=== PATIENT | male | born 1970 | race Hispanic/Latino ===

== ENCOUNTER 2017-07-08 04:12 | Emergency (ER) | payer OTHER ==
[2017-07-08 04:21] VITALS: BP 130/70; PULSE 84; RESP 16; TEMP 98; O2SAT 99
--- NOTE | 2017-07-08 04:29 | ED PDOC ---
HPI: Back Time Seen by Provider: 07/08/17 04:22 Chief Complaint (Nursing): Back Pain Chief Complaint (Provider): low back pain History Per: Patient Additional Complaint(s): 46-year-old male with history of herniated disc to L5-S1 presents with lower back pain exacerbation that started earlier today. Patient denies trauma or injury. He took Motrin 800 mg earlier this AM which did help somewhat. Patient denies bowel or bladder dysfunction. Past Medical History Reviewed: Historical Data, Nursing Documentation, Vital Signs Vital Signs: Last Vital Signs Temp 98.0 F 07/08/17 04:18 Pulse 84 07/08/17 04:18 Resp 16 07/08/17 04:18 BP 130/70 07/08/17 04:18 Pulse Ox 99 07/08/17 04:18 - Medical History PMH: Back Problems - Surgical History Other surgeries: bone graft of hip, age 12 - Family History Family History: States: No Known Family Hx - Living Arrangements Living Arrangements: With Family - Social History Current smoker - smoking cessation education provided: No Alcohol: Social Drugs: Denies - Home Medications Home Medications: Ambulatory Orders Medication Instructions Recorded Cyclobenzaprine [Cyclobenzaprine 10 mg PO TID PRN #20 tab 07/08/17 HCl] Naproxen [Naprosyn] 500 mg PO BID #20 tab 07/08/17 - Allergies Allergies/Adverse Reactions: Allergies Allergy/AdvReac Type Severity Reaction Status Date / Time No Known Allergies Allergy Verified 07/08/17 04:21 Review of Systems ROS Statement: Except As Marked, All Systems Reviewed And Found Negative Constitutional: Negative for: Fever Cardiovascular: Negative for: Chest Pain Respiratory: Negative for: Cough Gastrointestinal: Negative for: Nausea, Vomiting Genitourinary Male: Negative for: Dysuria, Frequency, Incontinence, Hematuria Musculoskeletal: Positive for: Back Pain Neurological: Negative for: Headache Physical Exam - Reviewed Nursing Documentation Reviewed: Yes Vital Signs Reviewed: Yes - Physical Exam Appears: Positive for: Well, Non-toxic, No Acute Distress Skin: Negative for: Rash Eye Exam: Negative for: Normal appearance Cardiovascular/Chest: Positive for: Regular Rate, Rhythm Respiratory: Positive for: Normal Breath Sounds Back: Positive for: Vertebral Tenderness (lumbar) Extremity: Positive for: Normal ROM Neurologic/Psych: Positive for: Alert, Oriented - ECG O2 Sat by Pulse Oximetry: 99 Pulse Ox Interpretation: Normal Medical Decision Making Medical Decision Making: Impression: Low back pain exacerbation Plan: PO naprosyn 500 mg Rx naprosyn and flexeril provided, along with ortho referral. Disposition - Clinical Impression Clinical Impression: Back strain - Patient ED Disposition Is Patient to be Admitted: No Counseled Patient/Family Regarding: Diagnosis, Need For Followup, Rx Given - Disposition Referrals: Ramo Berger III, MD [Staff Provider] - Disposition: Routine/Home Disposition Time: 04:30 Condition: STABLE Additional Instructions: TAKE RX MEDS DIRECTED. AVOID HEAVY LIFTING. FOLLOW UP WITH PRIMARY CARE DOCTOR OR WITH ORTHOPEDIST FOR ANY PERSISTENT SYMPTOMS. Prescriptions: Cyclobenzaprine [Cyclobenzaprine HCl] 10 mg PO TID PRN #20 tab PRN Reason: Muscle Spasm Naproxen [Naprosyn] 500 mg PO BID #20 tab Instructions: Muscle Strain, Low Back Pain (DC), Back Exercises Forms: [facility] ([place])
[2017-07-08] MEDS ORDERED: Naproxen 500 MG TAB PO STA (04:30)
[2017-07-08] MEDS ORDERED: Naproxen 500 MG TAB PO ONE (04:48)
== END 2017-07-08 05:15 | disposition home or self-care (01) ==
LOC: H.ER 04:12
DX: M54.5 Low back pain (principal)

== ENCOUNTER 2017-10-28 00:12 | Emergency (ER) | payer OTHER ==
[2017-10-28 00:20] VITALS: RESP 18
[2017-10-28] MEDS ORDERED: Sodium Chloride 0.9% 1,000 ML IV STA ×3 (00:25→01:40)
[2017-10-28 00:59] LABS: BASO % 0.4 % (0.0-2.0); HEMOGLOBIN 15.1 g/dL (12.0-18.0); LYMPH # 0.6 K/uL (1.0-4.3); MEAN CELL VOLUME 86.9 fl (80.0-94.0); MEAN CORPUSCULAR HEMOGLOBIN 29.6 pg (27.0-31.0); MEAN PLATELET VOLUME 8.1 fl (7.2-11.7); MONO # 0.6 K/uL (0.0-0.8); MONO % 12.6 % (0.0-10.0); NEUT # 3.3 K/uL (1.8-7.0); NRBC % 0.1 % (0.0-0.0); RBC 5.12 Mil/uL (4.40-5.90); RED CELL DISTRIBUTION WIDTH 13.6 % (11.5-14.5); WHITE BLOOD COUNT 4.5 K/uL (4.8-10.8)
[2017-10-28 01:02] LABS: BLOOD UREA NITROGEN 17 mg/dl (9-20); CALCIUM 8.8 mg/dL (8.4-10.2); GFR AFRICAN-AMERICAN > 60; GFR NON-AFRICAN AMERICAN 50
[2017-10-28 01:10] LABS: CK-MB 0.35 ng/mL (0.0-3.38)
--- NOTE | 2017-10-28 01:24 | ED PDOC ---
HPI: General Adult Time Seen by Provider: 10/28/17 00:17 Chief Complaint (Nursing): Flu-like Symptoms History Per: Patient History/Exam Limitations: no limitations Onset/Duration Of Symptoms: Days Have you had recent travel within the past 21 days to any of the following countries: [place], [place], [place] or [place]?: No Additional Complaint(s): Patient with no PMHx presenting with fever, patient states "I think I have heat stroke", states he was doing a vigorous training course and felt tired afterwards with chills and sweats as well as bodyaches. States his temperature was 102 last night. Today he states fever persisted and had general malaise, bodyaches. Denies cough, urinary symptoms, sick contacts, recent travel, chest pain, shortness of breath. Past Medical History Reviewed: Historical Data, Nursing Documentation, Vital Signs Vital Signs: Last Vital Signs Temp 98.9 F 10/28/17 02:14 Pulse 83 10/28/17 02:14 Resp 18 10/28/17 02:14 BP 124/61 10/28/17 02:14 Pulse Ox 95 10/28/17 02:14 - Medical History PMH: Back Problems - Family History Family History: States: Unknown Family Hx - Home Medications Home Medications: Ambulatory Orders Medication Instructions Recorded Cyclobenzaprine [Cyclobenzaprine 10 mg PO TID PRN #20 tab 07/08/17 HCl] Naproxen [Naprosyn] 500 mg PO BID #20 tab 07/08/17 - Allergies Allergies/Adverse Reactions: Allergies Allergy/AdvReac Type Severity Reaction Status Date / Time No Known Allergies Allergy Verified 07/08/17 04:21 Review of Systems ROS Statement: Except As Marked, All Systems Reviewed And Found Negative Constitutional: Positive for: Fever, Chills, Sweats, Weakness, Malaise Cardiovascular: Negative for: Chest Pain Respiratory: Negative for: Cough, Shortness of Breath Physical Exam - Reviewed Nursing Documentation Reviewed: Yes Vital Signs Reviewed: Yes - Physical Exam Appears: Positive for: Well, Non-toxic, No Acute Distress Head Exam: Positive for: ATRAUMATIC, NORMAL INSPECTION, NORMOCEPHALIC Skin: Positive for: Normal Color, Warm, DRY Eye Exam: Positive for: EOMI, Normal appearance, PERRL ENT: Positive for: Normal ENT Inspection Neck: Positive for: Normal, Painless ROM Cardiovascular/Chest: Positive for: Regular Rate, Rhythm Respiratory: Positive for: CNT, Normal Breath Sounds Gastrointestinal/Abdominal: Positive for: Normal Exam, Soft. Negative for: Tenderness Back: Positive for: Normal Inspection Extremity: Positive for: Normal ROM Neurologic/Psych: Positive for: Alert, Oriented - Laboratory Results Result Diagrams: 10/28/17 00:40 10/28/17 00:40 - ECG O2 Sat by Pulse Oximetry: 97 Pulse Ox Interpretation: Normal Medical Decision Making Medical Decision Making: A/P: No PMHx presenting with fever, bodyaches -patient is very well appearing -ddX: viral illness v. flu v. rhabdo -will get labs, give fluids -re-eval 240 Patient is feeling much better Fever is likley viral Vitals have significantly improved Advised patient to followup with Dr. Manzano,PMD Disposition - Clinical Impression Clinical Impression: Fever, unknown origin, Dehydration - Disposition Disposition: Routine/Home Disposition Time: 02:38 Condition: IMPROVED Additional Instructions: Please followup with Dr. Manzano in 1 - 2 days. Instructions: Dehydration, Adult (DC), Fever, Adult (DC) Forms: [employer] ([place])
[2017-10-28 01:46] LABS: URINE BILIRUBIN NEGATIVE (NEGATIVE); URINE BLOOD NEGATIVE (NEGATIVE); URINE CLARITY CLEAR (Clear); URINE COLOR YELLOW (YELLOW); URINE GLUCOSE (UA) NEG (Normal); URINE LEUKOCYTE ESTERASE NEG Leu/uL (Negative); URINE PROTEIN NEGATIVE (NEGATIVE); URINE UROBILINOGEN 0.2-1.0 mg/dL (0.2-1.0)
[2017-10-28 02:15] VITALS: BP 124/61; PULSE 83; TEMP 98.9
[2017-10-28 02:40] VITALS: O2SAT 97
== END 2017-10-28 03:08 | disposition home or self-care (01) ==
LOC: H.ER 00:12
DX: R50.9 Fever, unspecified (principal); E86.0 Dehydration
CPT/HCPCS: 80048; 81003; 82553; 85025; 86308; 87804; 96360; 96361; 99282; J7030